=== PATIENT | male | born 1940 | race Caucasian/White ===

== ENCOUNTER 2016-05-28 19:27 | Inpatient (IN) ==
[2016-05-28] MEDS ORDERED: ZOFRAN IV ONE ×2 (19:37→22:03)
[2016-05-28] MEDS ORDERED: DILAUDID IV ONE (19:37)
[2016-05-28 20:01] LABS: MANUAL DIFF NEEDED? NO
[2016-05-28 20:13] LABS: BASO% 0.2 % (0.0-0.8); EOS% 0.6 % (0.0-10.0); HEMOGLOBIN 13.9 g/dL (14.0-18.0); IMM GRAN# 0.04 X1000 (0.0-0.04); IMM GRAN% 0.2 % (0.0-0.5); LYMPH# 2.79 X1000 (1.2-3.4); LYMPH% 16.5 % (20.5-51.1); MCHC 34.8 g/dL (33-37); MCV 89.1 FL (81-99); MONO# 1.57 X1000 (0.11-0.59); MONO% 9.3 % (1.7-9.3); MPV 10.1 FL (7.4-10.4); NEUT% 73.2 % (42.2-75.2); PLT 262 X1000 (130-400); RBC 4.49 XMIL (4.7-6.1)
[2016-05-28 20:19] LABS: INR 0.93 (0.86-1.15); PROTIME 12.8 Seconds (12.1-15.5); PTT PL 28.2 Seconds (22.6-43.9)
[2016-05-28 20:23] LABS: ALBUMIN 4.6 g/dL (3.5-5.0); CALCIUM 9.9 mg/dL (8.8-10.2); POTASSIUM 4.8 mmol/L (3.5-5.1); TOTAL BILIRUBIN 0.4 mg/dL (0.20-1.00); TOTAL PROTEIN 7.9 g/dL (6.3-8.3)
[2016-05-28] MEDS ORDERED: NS 1,000 ML IV SCH (21:45)
--- NOTE | 2016-05-28 21:56 | PROVIDER DOCUMENTATION ---
HPI-Abdominal Pain/GI Problem - General Chief Complaint: Abdominal Pain Stated Complaint: ABD PAIN Time Seen by Provider: 05/28/16 19:36 Source: patient Allergies/Adverse Reactions: Patient Allergies Allergy/AdvReac Type Severity Reaction Status Date / Time No Known Allergies Allergy Verified 05/28/16 19:33 Home Medications: Home Medication List Medication Instructions Recorded Confirmed Last Taken Type Allopurinol 100 mg PO HS 06/27/14 05/28/16 1 Day Ago History Amlodipine Besylate 10 mg PO HS 06/27/14 05/28/16 1 Day Ago History Aspirin EC 81 mg PO HS 06/27/14 05/28/16 1 Day Ago History Atorvastatin Calcium [Lipitor] 40 mg PO HS 06/27/14 05/28/16 1 Day Ago History Dutasteride [Avodart] 0.5 mg PO DAILY 06/27/14 05/28/16 1 Day Ago History Hydrochlorothiazide 25 mg PO DAILY 06/27/14 05/28/16 1 Day Ago History Losartan Potassium 100 mg PO DAILY 06/27/14 05/28/16 1 Day Ago History Meclizine HCl [Antivert] 25 mg PO TID 06/27/14 05/28/16 1 Day Ago History Tamsulosin [Flomax] 0.4 mg PO DAILY 06/27/14 05/28/16 1 Day Ago History Glimepiride [Amaryl] 2 mg PO DAILY 05/28/16 05/28/16 1 Day Ago History - History of Present Illness-ABD Nature of Presenting Problems: This pt presents today c complaints of severe abdominal pains that began this morning and worsened throughout the day. He states that he thought he was constipated so he ate some prunes around 1000. He reports a very small BM but still felt "full." He states that he feels like his stomach is swollen and feels very "hard." He denies any fever, chills, n/v/d. No other issues or complaints. On arrival, pt is screaming in pain and holding his abdomen. Abdominal Pain Onset Location: reports: generalized abdomen Quality of Pain: reports: stabbing Severity in ED: reports: severe Onset/Duration: reports: other (see hpi) Timing: reports: still present, getting worse Modifying Factors: improves with: palpation Associated Symptoms: reports: constipation, loss of appetite Last BM: this morning Dark Stools Present?: reports: none noticed Rectal Bleeding: reports: none Rectal Pain: reports: none Emesis Description: reports: none Bruising or Bleeding Gums?: No Similar Symptoms Previously?: No Recently seen or treated by another doctor?: No Review of Systems - Adult - REVIEW OF SYSTEMS - ADULT Constitutional: reports: no symptoms reported. denies: chills, fever Eyes: reports: no symptoms reported. denies: discharge, dry eyes Ears, Nose, Mouth & Throat: reports: no symptoms reported. denies: ear discharge, ear pain Cardiovascular: reports: no symptoms reported. denies: chest pain, edema Respiratory: reports: no symptoms reported. denies: chronic cough, cough Gastrointestinal: reports: abdominal pain, constipation. denies: hematemesis, nausea Genitourinary: reports: no symptoms reported. denies: dysuria, discharge Musculoskeletal: reports: no symptoms reported. denies: bone pain, back pain Integumentary: reports: no symptoms reported. denies: hives, hair loss Neurological: reports: no symptoms reported. denies: ataxia, dizziness/vertigo Psychiatric: reports: no symptoms reported. denies: anxiety, anti-depressant use Endocrine: reports: no symptoms reported Hematologic/Lymphatic: reports: no symptoms reported Allergic/Immunologic: reports: no symptoms reported All Other Systems: Reviewed and Negative Past History - Adult - PAST MEDICAL HISTORY-ADULT Review of Records: reports: Old Records Reviewed, Nursing Assessment Review, Medications Reviewed, Social history reviewed & non-contributory. Major Childhood Illnesses: reports: denies history Cardiovascular: reports: CAD ("leaky valves"), HTN, hyperlipidemia Respiratory: reports: denies history Gastrointestinal: reports: cholelithiasis Obstetrical/Gynecological: reports: denies history Genitourinary: reports: denies history Musculoskeletal: reports: other (gout) Neurological: reports: denies history Endocrine/Immune: reports: Diabetes Other Conditions: reports: other (vertigo ) - PRIOR SURGERIES/PROCEDURES Surgical/Procedure History: reports: appendectomy, cholecystectomy, orthopedic ( extremity) (right arm), other (cataract removal) - PRIOR HOSPITALIZATIONS Prior Hospitalizations: reports: for similar symptoms - IMMUNIZATION STATUS Childhood Immunizations: See Nurse Assessment Flu Vaccine: See Nurse Assessment - FAMILY HISTORY Family History: reviewed, not pertinent Physical Exam-General - PHYSICAL EXAM-ADULT Initial Vital Signs Reviewed: Yes - CONSTITUTIONAL General Appearance: alert, moderate distress, obese - EYES Eyes: PERRL/EOMI, pink conjunctivae - HEAD, EARS, NOSE, MOUTH & THROAT HENMT: normocephalic/atraumatic, moist mucous membranes, normal ENT inspection - NECK Neck: non-tender, full range of motion - RESPIRATORY Respiratory: chest non-tender, lungs clear - CARDIOVASCULAR Cardiovascular: normal peripheral pulses, regular rate, rhythm - GASTROINTESTINAL (ABDOMEN) Abdominal Exam: no pulsatile mass, abnormal bowel sounds (diminished), distended , guarding, rigid, tenderness. negative: McBurney's point tenderness, Logan's sign - MUSCULOSKELETAL Back Exam: normal inspection Extremity: normal range of motion, non-tender - SKIN Integumentary: normal color, normal turgor, warm/dry - NEUROLOGIC Neurologic: grossly normal, no motor/sensory deficits - PSYCHIATRIC Psych/Mental Status: normal mood/affect, normal thought content, normal thought process, oriented x 3 Progress - PLAN OF CARE/RESULTS Progress/Plan/Lab Results: Laboratory Tests 05/28/16 05/28/16 05/28/16 19:28 19:28 19:28 WBC 16.90 H RBC 4.49 L Hgb 13.9 L Hct 40.0 L MCV 89.1 MCH 31.0 MCHC 34.8 RDW Std Deviation 13.8 Plt Count 262 MPV 10.1 Immature Gran % (Auto) 0.2 Neut % (Auto) 73.2 Lymph % (Auto) 16.5 L [place] % (Auto) 9.3 Eos % (Auto) 0.6 Baso % (Auto) 0.2 Immature Gran # (Auto) 0.04 Neut # (Auto) 12.36 H Lymph # (Auto) 2.79 [place] # (Auto) 1.57 H Eos # (Auto) 0.10 Baso # (Auto) 0.04 PT 12.8 INR 0.93 APTT (Factor Assay) 28.2 Sodium 137 Potassium 4.8 Chloride 98 Carbon Dioxide 21 L Anion Gap 18 BUN 42 H Creatinine 2.1 H Estimated GFR/1.73 m2 31 BUN/Creatinine Ratio 20 Glucose 221 H Calculated Osmolality 291 Calcium 9.9 Total Bilirubin 0.40 AST 24 ALT 28 Alkaline Phosphatase 64 Total Protein 7.9 Albumin 4.6 Globulin 3.0 Albumin/Globulin Ratio 1.0 Blood Type Antibody Screen 05/28/16 19:44 WBC RBC Hgb Hct MCV MCH MCHC RDW Std Deviation Plt Count MPV Immature Gran % (Auto) Neut % (Auto) Lymph % (Auto) [place] % (Auto) Eos % (Auto) Baso % (Auto) Immature Gran # (Auto) Neut # (Auto) Lymph # (Auto) [place] # (Auto) Eos # (Auto) Baso # (Auto) PT INR APTT (Factor Assay) Sodium Potassium Chloride Carbon Dioxide Anion Gap BUN Creatinine Estimated GFR/1.73 m2 BUN/Creatinine Ratio Glucose Calculated Osmolality Calcium Total Bilirubin AST ALT Alkaline Phosphatase Total Protein Albumin Globulin Albumin/Globulin Ratio Blood Type A POSITIVE Antibody Screen NEGATIVE Orders Category Date Time Status Saline Loc NOW Care 05/28/16 19:36 Active THORAX/ABDOMEN/PELVIS W/O CONT [CT] Stat Exams 05/28/16 20:28 Taken CBC WITH DIFF [HEME] Stat Lab 05/28/16 19:28 Completed COMPREHENSIVE METABOLIC PANEL [CHEM] Stat Lab 05/28/16 19:28 Completed [address]IME WITH INR PL [COAG] Stat Lab 05/28/16 19:[address] [COAG] Stat Lab 05/28/16 19:28 Completed TYPE & SCREEN [BBK] Stat Lab 05/28/16 19:44 Completed 0.9% Sodium Chloride Inj [Ns] 1,000 ml Med 05/28/16 21:45 Active IV 75 mls/hr Hydromorphone [Dilaudid] Med 05/28/16 19:37 Discontinued 1 mg IV NOW ONE Ondansetron [Zofran] Med 05/28/16 19:37 Discontinued 4 mg IV NOW ONE Vital Signs Temp Pulse Resp BP Pulse Ox 05/28/16 19:30 97.5 F L 73 22 174/68 99 No Known Allergies Allergy (Verified 05/28/16 19:33) Allopurinol 100 mg PO HS 06/27/14 Amlodipine Besylate 10 mg PO HS 06/27/14 Aspirin EC 81 mg PO HS 06/27/14 Atorvastatin Calcium [Lipitor] 40 mg PO HS 06/27/14 Dutasteride [Avodart] 0.5 mg PO DAILY 06/27/14 Hydrochlorothiazide 25 mg PO DAILY 06/27/14 Losartan Potassium 100 mg PO DAILY 06/27/14 Meclizine HCl [Antivert] 25 mg PO TID 06/27/14 Tamsulosin [Flomax] 0.4 mg PO DAILY 06/27/14 Glimepiride [Amaryl] 2 mg PO DAILY 05/28/16 Laboratory 05/28/16 05/28/16 05/28/16 19:44 19:28 19:28 WBC 16.90 H RBC 4.49 L Hgb 13.9 L Hct 40.0 L MCV 89.1 MCH 31.0 MCHC 34.8 RDW Std Deviation 13.8 Plt Count 262 MPV 10.1 Immature Gran % (Auto) 0.2 Neut % (Auto) 73.2 Lymph % (Auto) 16.5 L [place] % (Auto) 9.3 Eos % (Auto) 0.6 Baso % (Auto) 0.2 Immature Gran # (Auto) 0.04 Neut # (Auto) 12.36 H Lymph # (Auto) 2.79 [place] # (Auto) 1.57 H Eos # (Auto) 0.10 Baso # (Auto) 0.04 PT 12.8 INR 0.93 APTT (Factor Assay) 28.2 Sodium Potassium Chloride Carbon Dioxide Anion Gap BUN Creatinine Estimated GFR/1.73 m2 BUN/Creatinine Ratio Glucose Calculated Osmolality Calcium Total Bilirubin AST ALT Alkaline Phosphatase Total Protein Albumin Globulin Albumin/Globulin Ratio Blood Type A POSITIVE Antibody Screen NEGATIVE 05/28/16 19:28 WBC RBC Hgb Hct MCV MCH MCHC RDW Std Deviation Plt Count MPV Immature Gran % (Auto) Neut % (Auto) Lymph % (Auto) [place] % (Auto) Eos % (Auto) Baso % (Auto) Immature Gran # (Auto) Neut # (Auto) Lymph # (Auto) [place] # (Auto) Eos # (Auto) Baso # (Auto) PT INR APTT (Factor Assay) Sodium 137 Potassium 4.8 Chloride 98 Carbon Dioxide 21 L Anion Gap 18 BUN 42 H Creatinine 2.1 H Estimated GFR/1.73 m2 31 BUN/Creatinine Ratio 20 Glucose 221 H Calculated Osmolality 291 Calcium 9.9 Total Bilirubin 0.40 AST 24 ALT 28 Alkaline Phosphatase 64 Total Protein 7.9 Albumin 4.6 Globulin 3.0 Albumin/Globulin Ratio 1.0 Blood Type Antibody Screen Orders Category Date Time Status NG/OG/Feeding Tube Insertion ORDERED Care 05/28/16 22:03 Active Saline Loc NOW Care 05/28/16 19:36 Active THORAX/ABDOMEN/PELVIS W/O CONT [CT] Stat Exams 05/28/16 20:28 Taken CBC WITH DIFF [HEME] Stat Lab 05/28/16 19:28 Completed COMPREHENSIVE METABOLIC PANEL [CHEM] Stat Lab 05/28/16 19:28 Completed PR[address]IME WITH INR PL [COAG] Stat Lab 05/28/16 19:[address] [COAG] Stat Lab 05/28/16 19:28 Completed TYPE & SCREEN [BBK] Stat Lab 05/28/16 19:44 Completed 0.9% Sodium Chloride Inj [Ns] 1,000 ml Med 05/28/16 21:45 Active IV 75 mls/hr Hydromorphone [Dilaudid] Med 05/28/16 19:37 Discontinued 1 mg IV NOW ONE Morphine Med 05/28/16 22:03 Discontinued 4 mg IV NOW ONE Ondansetron [Zofran] Med 05/28/16 19:37 Discontinued 4 mg IV NOW ONE Ondansetron [Zofran] Med 05/28/16 22:03 Discontinued 4 mg IV NOW ONE - CT/MRI 1 CT Study: Abdomen, Pelvis, Thorax CT Results: bowel perforation (called to Dr. Briscoe by Dr. Clark) - CONSULTS/PCP/HOSPITALIST Notification #1 *Consult/PCP/Hospitalist*: Dr. Noguera Time Discussed: 21:45 Consult Disposition: Will see in ED #2 Consult: Dr. Noguera Time Discussed: 22:05 Consult Disposition: Admit Departure - Departure Time of Disposition Order: 21:56 DIAGNOSIS: Bowel perforation Disposition: ADMITTED INPATIENT 09 Certified Medical Emergency: Emergent Condition: Stable Referrals: None,PCP [Primary Care Provider] - Attestation - Physician/ KIEL Attestation Patient care was provided by Advanced Practice Provider:: Yes Advanced Practice Provider:: Hank Iqbal Advanced Practice Provider documentation review:: The Mid-level provider documentation, treatment plan and medical decision making was reviewed by the physician who agrees with all treatment and medical decision making by the ML. The physician spent face to face time with patient:: Yes
[2016-05-28] MEDS ORDERED: MORPHINE IV ONE (22:03)
[2016-05-28] MEDS ORDERED: INVANZ 1 GM/NS 50 ML IV ONE (22:06)
--- NOTE | 2016-05-28 22:33 | HISTORY AND PHYSICAL ---
CHIEF COMPLAINT: Abdominal pain. HISTORY OF PRESENT ILLNESS: A 75-year-old male with acute onset of generalized severe abdominal pain this morning, which has been constant throughout the day, worsened with direct pressure, relieved some with pain medicine in the ER and associated with nausea, vomiting, including some blood-tinged vomit. His last bowel movement was earlier today after taking a laxative, but it was small. He denies chronic constipation. He says he has bowel movements daily that are soft and brown. He was in his usual state of health until this morning. PAST MEDICAL HISTORY: Aortic stenosis and what sounds like some aortic regurgitation. Hypertension. Diabetes. Gout. BPH. FAMILY PHYSICIAN: Brittney Anderson MD CROCHETER: Maurilio Batista MD HOME MEDICATIONS: Flomax. Antivert. Avodart. Allopurinol. Hydrochlorothiazide. Lipitor. Aspirin. Losartan. Amlodipine. Glimepiride. ALLERGIES: No known drug allergies. PAST SURGICAL HISTORY: 1. Laparoscopic cholecystectomy. 2. Laparoscopic appendectomy. FAMILY HISTORY: Reviewed and noncontributory. SOCIAL HISTORY: Negative for tobacco, alcohol, or illicit drug use. REVIEW OF SYSTEMS: Ten systems reviewed and negative except as noted above. PHYSICAL EXAMINATION: VITAL SIGNS: Temperature 97.5 degrees, pulse 73, respirations 22, blood pressure 174/68, O2 saturation 99%. GENERAL: Well-developed, elderly male in no distress who looks his stated age. HEENT: Normocephalic, atraumatic. Extraocular muscles intact. Pupils equal, round, reactive to light. Sclerae anicteric. NECK: Supple. No thyromegaly. CARDIOVASCULAR: Regular rate and rhythm. RESPIRATORY: Bilateral equal breath sounds. GI: Firm, distended and diffusely tender with some guarding. He seems to be more tender on his right side. No hernia appreciated. No palpable mass appreciated. No organomegaly. SKIN: Warm and dry. No rash. MUSCULOSKELETAL: Moves all extremities equally and well. EXTREMITIES: No clubbing, cyanosis, or edema. LABORATORY: White blood cell count 16.9, hemoglobin 13.9, hematocrit 40, platelet count 262,000. INR 0.93. Metabolic profile reviewed and notable for BUN of 42, creatinine 2.1. IMAGING: CT of the chest, abdomen and pelvis was reviewed by me. He has a distended transverse and ascending colon with free air throughout. There may be an origin in the cecum. The small bowel appears normal. There appears to be inspissated stool along the distal transverse, descending and sigmoid colon. No definite colonic mass is appreciated. ASSESSMENT AND PLAN: A 75-year-old male with perforated viscus and what appears to be a perforated cecum secondary to inspissated stool. He will be taken to the operating room emergently tonight for exploration, partial colectomy and other indicated procedures depending on our findings. I discussed the possible need for a diverting colostomy or ileostomy and even a total colectomy. We discussed the risks of bleeding, infection, anastomotic leak, respiratory or cardiac failure, injury to surrounding organs, such as the intestines, ureters, spleen or liver and other imponderables. He understands and agrees to proceed.
--- NOTE | 2016-05-28 22:42 | Diag Imaging Result Document ---
PROCEDURE NAME: THORAX/ABDOMEN/PELVIS W/O CONT - 05/28/2016 STUDY: CT chest without contrast. COMPARISON: No comparison films. No pleural effusions. No thoracic aortic aneurysm. Mild cardiac prominence. No enlarged mediastinal or hilar lymph nodes. No infiltrates. No bronchiectasis. No lung mass. Minimal atelectasis or scarring in the left base. IMPRESSION: 1. No pneumonia, pleural effusion, or pneumothorax. 2. Minimal left basilar atelectasis or fibrosis. STUDY: Abdomen and pelvis without oral or intravenous contrast. There is free air within the abdomen and pelvis. This is more prominent about the liver and cecum. The cecum and transverse colon are markedly distended and filled with air and debris. Transverse diameter of the cecum and ascending colon measure at least 8 cm. There are scattered diverticula primarily in the sigmoid colon. The gallbladder has been removed. There are scattered hypodense hepatic lesions which are nonspecific but may simply represent cysts. Normal spleen and adrenal glands. No inflammation about the pancreas. No renal stones. No hydronephrosis. No aortic aneurysm. Prominent atherosclerosis. The urinary bladder is only mildly distended. There are small fat filled inguinal hernias. No bowel loops within these. IMPRESSION: 1. Markedly distended cecum, ascending colon, and proximal transverse colon with free air in the abdomen. 2. Cholecystectomy. 3. Hypodense hepatic lesions which may simply be cysts. 4. Atherosclerosis. 5. Diverticulosis. A preliminary report was called to Dr. Briscoe in the emergency room at 9:35 p.m. MTDD
[2016-05-28] MEDS ORDERED: INVANZ 1 GM/NS 50 ML ONE (23:34)
[2016-05-29 01:05] LABS: BILIRUBIN URINE NEGATIVE (NEGATIVE); BLOOD URINE NEGATIVE (NEGATIVE); COLOR YELLOW; GLUCOSE URINE NEGATIVE (NEGATIVE); LEUKOCYTES URINE NEGATIVE (NEGATIVE); NITRITE URINE NEGATIVE (NEGATIVE); PH URINE 5.5; PROTEIN URINE 100 mg/dL (NEGATIVE); SP GRAVITY URINE 1.025; TURBIDITY URINE HAZY (CLEAR); URINE SOURCE CATH; UROBILINOGEN URINE NORMAL (NORMAL)
[2016-05-29 01:06] LABS: URINE MICRO REVIEW NEEDED? YES
[2016-05-29 01:58] LABS: UR EPITHELIAL CELLS <10 /HPF (<10); URINE BACTERIA NEGATIVE /HPF; URINE RBC <10 /HPF (<10); URINE WBC <10 /HPF (<10)
[2016-05-29] MEDS ORDERED: ZOFRAN IV PRN ×2 (03:05→04:20)
[2016-05-29] MEDS ORDERED: D5 LR 1,000 ML IV SCH ×2 (03:05→05:00)
[2016-05-29] MEDS ORDERED: DILAUDID IV PRN ×2 (03:05→04:14)
[2016-05-29] MEDS ORDERED: FENTANYL ONE (03:08)
[2016-05-29] MEDS ORDERED: DIPRIVAN 1% ONE (03:08)
[2016-05-29] MEDS ORDERED: OFIRMEV 1000 MG/ISOTONIC SOLN 100 ML IV SCH (04:00)
[2016-05-29] MEDS: DIPRIVAN 1% 100 ML IV SCH ×2 (04:30→07:26)
[2016-05-29 05:14] LABS: ALLEN TEST YES; BE -0.5 mmoll (-3.0-3.0); BLOOD TYPE ARTERIAL; DRAW SITE R RADIAL; METHB 2.1 % (0.0-1.5); PCO2(98.6) 39 mmHg (35-45); PO2(98.6) 194 mmHg (60-100); SAMPLE BLOOD; SRATE 12 BPM; THB 12.3 g/dL (11.5-17.4); TVOL 700 mL
[2016-05-29 05:15] LABS: MODALITY VENTILATOR
[2016-05-29] MEDS: OFIRMEV 1000 MG/ISOTONIC SOLN 100 ML IV SCH ×4 (05:17→23:04)
--- NOTE | 2016-05-29 05:33 | OPERATIVE NOTE ---
PROCEDURE DATE: 05/29/2016 PREOPERATIVE DIAGNOSIS: Perforated viscus. POSTOPERATIVE DIAGNOSES: 1. Gangrenous colon with perforation. 2. Inspissated stool in the descending colon, sigmoid colon, and rectum. PROCEDURE: Exploratory laparotomy with partial colectomy and ileal colic anastomosis. SURGEON: Miky Noguera MD ANESTHESIA: General. ESTIMATED BLOOD LOSS: 200 mL. COMPLICATIONS: None apparent. SPECIMENS: Ascending colon and transverse colon. FINDINGS: The ascending and transverse colon were gangrenous with micro-perforations of the cecum and ascending colon, and probably in the transverse colon as well, although I did not see any gross fecal soilage or bilious soilage. The distal descending, sigmoid colon, and rectum had inspissated stool; however, the bowel of the descending colon, sigmoid, and rectum appeared to be of good color and blood supply and was not dilated. There were no cancerous mass is appreciated. The transition point was at the splenic flexure, or near the transition point of necrotic viable colon occurred at the distal transverse colon near the splenic flexure. TECHNIQUE: The patient was brought to the operating room and placed supine on the table. General anesthesia was induced. After Negron catheter was placed he was prepped and draped in sterile fashion. An nasogastric tube had already been placed prior to arrival to the OR. An incision was made from the xiphoid process down to the symphysis pubis with a 10 blade and carried down through the subcutaneous fat and fascia sharply. The peritoneum was then opened sharply with the knife and then using my hand within the peritoneal cavity, I extended the fascia and peritoneal incisions with cautery lengthwise throughout our incision. Immediately we found gangrenous colon as described above. The ascending colon and cecum were very distended and the transverse colon was quite distended as well. This caused the colon to be very thin walled with areas of micro- perforation. No gross fecal soilage was seen. A Bookwalter retractor was placed and with some difficulty I began mobilizing the ascending colon and cecum by incising the lateral peritoneal reflection with cautery and bluntly using my fingers to separate the mesentery and colon away from the peritoneum and retroperitoneum. I went ahead and divided the terminal ileum perhaps 10 cm from the valve from the ileocecal valve. This was done with a linear blue ELIZA stapler. I then began dividing the intervening mesentery of the distal terminal ileum and ascending colon. This was done with the LigaSure. I then turned my attention to the gastrocolic ligament and divided this with cautery and came down to the hepatic flexure. It was somewhat stuck to the liver and it was peeled off the liver with blunt finger dissection and cautery. I continued mobilizing the hepatic flexure with cautery and blunt finger dissection, mobilizing this flexure up and out of the retroperitoneum away from the underlying duodenum. We continued our dissection down the white line of Toldt of the ascending colon and completely mobilized this colon up out of the retroperitoneum into our wound. The mesentery was divided with the LigaSure. We continued this around the hepatic flexure and across the gastrocolic ligament of the transverse colon, all the way to the splenic flexure. I mobilized the splenic flexure with cautery, blunt finger dissection, and ligature and continued this dissection partially down the lateral peritoneal reflection on the descending side. Once our splenic flexure was mobilized, I assessed the viability of the bowel. There was a transition of the necrotic bowel to living bowel at the distal transverse colon, near the flexure. I divided the colon here with a blue ELIZA stapler, where I have thought the bowel was viable. The remaining middle colic vessels and mesentery was divided with the LigaSure. There were a few venous bleeders from the mesentery that were controlled with 3-0 [id number] silk stick ties. The specimen was passed off the field. I inspected the descending colon, sigmoid, and rectum with the findings as noted above. I brought in a Doppler and assessed the vasculature of our splenic flexure and descending colon and did find pulsatile vessels in the mesentery near the insertion into the bowel. The bowel had good color and the small bowel was peristalting with good color. I irrigated out the right and left pericolic gutters with warm saline. I then began a 2 layered hand-sewn [id number] anastomosis. The terminal ileum was brought next to the colon and in a mesenteric [id number] fashion a row of posterior interrupted 3-0 silk seromuscular sutures was placed/ bowel clamps were placed proximally and distally. I then opened the colon and the small bowel with cautery. The stool and bile was suctioned out. Some vegetable material was also removed with forceps. I then began the posterior inner layer with a running locking 3-0 Vicryl converting to a baseball stitch anteriorly and then an outer anterior row of 3- 0 seromuscular silk sutures was also placed. The anastomosis was patent. There is no signs of any leakage after the clamps were removed. There was no tension. I then closed the intervening mesenteric defect with interrupted 3-0 silk. We changed our gloves. The bowel was put back into its anatomic position. We checked for bleeding in all quadrants and could not find any bleeding. Our laparotomy pads were removed. The Bookwalter retractor was removed. The peritoneum was closed with a running #1 Vicryl. Several interrupted [id number] 0 Vicryl pops were done on the fascia for internal retention sutures. I then closed the fascia with a running looped #1 Maxon in 2 directions. The skin was closed with skin clips. He was transferred to the ICU in fair condition. There were no apparent complications.
[2016-05-29] MEDS: HUMULIN R SUBQ SCH ×5 (06:16→20:06)
[2016-05-29 06:56] LABS: ALBUMIN 3.5 g/dL (3.5-5.0); CALCIUM 8.7 mg/dL (8.8-10.2); POTASSIUM 4.5 mmol/L (3.5-5.1); TOTAL BILIRUBIN 0.47 mg/dL (0.20-1.00); TOTAL PROTEIN 6.2 g/dL (6.3-8.3)
[2016-05-29] MEDS ORDERED: HUMULIN R DOSE (PARKWAY) SUBQ SCH (07:00)
--- NOTE | 2016-05-29 07:37 | EKG Report ---
Test Performed on : 05/29/2016 07:11:31 AM Test Reason : Bowel Perforation,Surgical Patient Blood Pressure : / mmHG Vent. Rate : 078 BPM Atrial Rate : 078 BPM P-R Int : 188 ms QRS Dur : 096 ms QT Int : 378 ms P-R-T Axes : 057 019 043 degrees QTc Int : 430 ms Normal sinus rhythm. Normal ECG When compared with ECG of 27-JUN-2014 14:40, No significant change was found Confirmed by Jeremi Vallejo MD ([id number]) on 05/29/2016 9:53:07 PM
--- NOTE | 2016-05-29 07:51 | Diag Imaging Result Document ---
PROCEDURE NAME: CHEST-PORTABLE - 05/29/2016 PORTABLE CHEST X-RAY: COMPARISON: CT chest 05/28/2016. FINDINGS: There is a new endotracheal tube at T4. There is a nasogastric tube with the tip in the stomach. There is some patchy atelectasis in the lung bases. No significant consolidation. IMPRESSION: No acute disease.
[2016-05-29] MEDS: PROTONIX IV SCH (07:58)
[2016-05-29] MEDS: SODIUM CHLORIDE 0.9% INJ SCH (07:58)
[2016-05-29 08:59] LABS: EOS# 0.01 X1000 (0.0-0.7); EOS% 0.1 % (0.0-10.0); LYMPH# 0.22 X1000 (1.2-3.4); LYMPH% 2.5 % (20.5-51.1); MANUAL DIFF NEEDED? YES; MCH 31.3 PG (27-31); MCHC 34.3 g/dL (33-37); MCV 91.4 FL (81-99); MONO# 0.49 X1000 (0.11-0.59); MONO% 5.5 % (1.7-9.3); MPV 9.6 FL (7.4-10.4); NEUT% 91.9 % (42.2-75.2); PLT 192 X1000 (130-400); RBC 3.83 XMIL (4.7-6.1)
[2016-05-29 09:21] LABS: BANDS 18 % (0-1); LYMPHS 10 % (21-51); MONO 6 % (1-9)
[2016-05-29 09:35] LABS: HEMOGLOBIN A1C 5.7 % (4.8-6.0)
[2016-05-29] MEDS: MINERAL OIL PO SCH ×3 (09:43→16:12)
[2016-05-29] MEDS ORDERED: ROBINUL ONE (09:46)
[2016-05-29] MEDS ORDERED: XYLOCAINE-MPF 2% ONE (09:46)
[2016-05-29] MEDS ORDERED: ANESTHESIA PB SET 88 IN 5742 ONE (09:46)
[2016-05-29] MEDS ORDERED: QUELICIN (DOSE) ONE (09:46)
[2016-05-29] MEDS ORDERED: NORCURON ONE (09:46)
[2016-05-29] MEDS ORDERED: NEOSTIGMINE ONE (09:46)
[2016-05-29] MEDS ORDERED: LR 3,000 ML ONE (09:46)
[2016-05-29] MEDS ORDERED: EXTENSION SET 32 IN 4522 ONE (09:46)
[2016-05-29] MEDS ORDERED: OFIRMEV 1000 MG/ISOTONIC SOLN 100 ML ONE (09:46)
--- NOTE | 2016-05-29 10:10 | CONSULTATION ---
TIME: 0500. CHIEF COMPLAINT: Abdominal pain. HISTORY OF PRESENT ILLNESS: Mr. Marcum is a 75-year-old male who presented to the ER at [facility] last night at approximately 9:30. He presented with complaints of abdominal pain. The patient's daughter provided past medical history and history of present illness due to the patient has just recently come out of surgery and is intubated at this time and sedated. His daughter has reported that the patient had not had a bowel movement for 2 days and that, about 3:30 yesterday afternoon on the , he drank a bottle of mag citrate to relieve his constipation. Shortly after this, the patient called his daughter and reported that he was having severe abdominal pain. They called an ambulance and had him brought to the ER. Upon evaluation in the ER, the patient was found to have an elevated white blood cell count of 16.9. A CT abdomen and pelvis was performed, which showed that there was a markedly distended cecum, ascending colon, and proximal transverse colon with free air in the abdomen. Dr. Noguera was consulted. The patient was subsequently transferred to [facility] and underwent a bowel resection with Dr. Noguera for gangrenous bowel with perforation. The PACU nurse reported that Dr. Noguera removed parts of the transverse and ascending colon. Upon my evaluation, the patient had just recently returned from the PACU. His daughters, by the name of AndrzejTaqueriale, and Bibi, were at bedside and report that the patient is to remain a full code. His daughter denied her father reporting any symptoms of a fever, body aches, or chills. She did report that, after his arrival to the ER at [facility], he did have some nausea and vomiting. At this time, the patient has been placed in the ICU for inpatient admission with Dr. Noguera and the hospitalist group will be handling his medical management. REVIEW OF SYSTEMS: A 14-point review of systems was conducted with the patient and are negative except for pertinent positives mentioned in the above HPI. PAST MEDICAL HISTORY: 1. History of heart murmur. 2. Aortic valve regurgitation. 3. Questionable history of irregular heartbeat. 4. Diabetes mellitus type 2. 5. Hyperlipidemia. 6. Hypertension. 7. Vertigo. 8. Gout. 9. Melanoma skin cancer. PAST SURGICAL HISTORY: 1. Appendectomy. 2. Cholelithiasis. 3. Bilateral cataract removal. 4. Right arm surgery for removal of melanoma cancer. SOCIAL HISTORY: The patient is a former smoker. He quit smoking in 1988, though prior to this, smoked 1 pack per day for approximately 20 years. His family reports very occasional alcohol use. No known illicit drug use. The patient, at this time, does live alone and is usually able to perform his activities of daily living without difficulty. FAMILY HISTORY: Positive for heart disease in his father and melanoma skin cancer. The patient's mother has a history of ovarian cancer and Alzheimer disease. ALLERGIES: The patient has no known allergies. HOME MEDICATIONS: 1. Allopurinol 100 mg p.o. nightly. 2. Amlodipine 10 mg p.o. nightly. 3. Aspirin 81 mg p.o. nightly. 4. Atorvastatin 40 mg p.o. nightly. 5. Avodart 0.5 mg p.o. daily. 6. Amaryl 10 mg p.o. daily. 7. Hydrochlorothiazide 25 mg p.o. daily. 8. Losartan 100 mg p.o. daily. 9. Antivert 25 mg p.o. t.i.d. 10.Flomax 0.4 mg p.o. daily. DIAGNOSTIC DATA: Laboratory results: White blood cell count 16.9, hemoglobin 13.9, hematocrit 40, platelet count 262, PT 12.8, INR 0.93, PTT 28.2, sodium 137, potassium 4.8, chloride 98, bicarb 21, BUN 42, creatinine 2.1, GFR 31, glucose 221, calcium 9.9. Liver function tests within normal limits. Arterial blood gases were obtained, ventilator at 50% FIO2, pH 7.4, PCO2 39, PO2 194, HCO3 24.5, base excess is negative 0.5. O2 saturation is 99. Urinalysis was obtained via catheter, was positive for protein, though was otherwise within normal limits. A portable chest x-ray that was performed for status post intubation showed no acute abnormality, though we are awaiting the official radiology over-read. Pending diagnostic studies at this time are EKG, blood cultures, a lactate, and hemoglobin A1c. PHYSICAL EXAMINATION: VITAL SIGNS: Temperature 97.2, heart rate 87, respirations 22, blood pressure 146/71, oxygen saturation 100% on ventilator. GENERAL: Mr. Marcum is a well-nourished, well-developed, elderly 75-year-old male. Upon my examination, the patient has just recently returned from the surgical recovery room and is intubated and sedated at this time. HEENT: Head is atraumatic, normocephalic. Pupils are 2 mm bilaterally and slightly sluggish. Sclerae are white, no lesions noted. Subconjuctivae are pink. Oral mucosa is moist. There is an endotracheal tube noted at the right lip. NECK: Supple. Trachea midline. No JVD noted. CARDIOVASCULAR: There is a normal S1 and S2. The patient also has a systolic murmur noted as well, though no other rubs or gallops present. Regular heart rate and rhythm. PULMONARY: The patient has symmetrical chest expansion bilaterally. Lung sounds are clear to auscultation in bilateral full espinoza. ABDOMEN: Slightly firm, distended. Bowel sounds are present in all 4 quadrants. GENITOURINARY: The patient has a Negron catheter in place at this time and does have light, jonatan- colored urine noted in his Negron drainage bag. EXTREMITIES: No cyanosis or edema noted. Pulse, motor, and sensory intact in all extremities as well. Pedal pulses are 3+ bilaterally. Radial pulses are 3+ bilaterally. The patient does have clubbing noted. INTEGUMENTARY: The patient's skin is pink, warm, dry, and intact, except for recent abdominal surgical wound. NEUROLOGICAL: The patient's neurological exam is very limited at this time, due to he is intubated and sedated, and has just recently come from the PACU, though he is responsive to painful stimuli. ASSESSMENT AND PLAN: 1. Gangrenous bowel with perforation, status post bowel resection. We will follow Dr. Noguera's recommendations for management of this and the patient is receiving Invanz 1 g intravenous q.24 h., and we will continue to follow. 2. Leukocytosis. This is likely secondary to his bowel perforation. We will continue with treatment for #1. 3. Acute kidney injury. We will continue with gentle fluid resuscitation. We will avoid nephrotoxic medications and renally dose medications as necessary. 4. Diabetes mellitus type 2. At this time, we will place the patient on a sliding scale insulin and do pattern fingerstick blood sugars. We will continue to follow. 5. Hypertension. At this time, we have not placed orders for any antihypertensive medications, due to the patient has just returned from surgery, though will likely need propofol for sedation. We will continue to monitor this closely. The patient will have vital signs q.1 h. per ICU protocol. He will be on strict bedrest. We will do strict intake and output. He will be n.p.o. DVT prophylaxis at this time is being provided with SCDs and Lovenox 40 mg subcutaneous nightly. GI prophylaxis is being provided with Protonix 40 mg IV q.24 h. Pain medication and nausea medications have also been ordered with Dilaudid and Zofran p.r.n. Further orders and recommendations pending hospital course, diagnostic studies, and physician evaluation. We would like to thank Dr. Noguera for this consult. Dictated by EMELIA Haley for Conrado Carrasco MD
--- NOTE | 2016-05-29 10:54 | PROGRESS NOTE ---
DATE: 05/29/2016 SUBJECTIVE: The patient is awake, alert, oriented, and following commands. He is on CPAP and breathing comfortably. No acute event reported by the overnight staff. OBJECTIVE: Vital Signs: Blood pressure 130/62, pulse of 75, respirations 19, temperature of 97.8, saturation 100% on CPAP. General Appearance: Obese, white male, in no acute distress. HEENT: Anicteric. Clear conjunctivae. Neck supple. No JVD. No bruits. Cardiovascular: S1, S2. Normal rate and rhythm. No murmur, rubs, or gallops. Pulmonary: Clear to auscultation bilaterally. GI: Midline incision noted. Slightly distended. Minimal bowel sounds. LABORATORY: Sodium 139, potassium 4.5, chloride 101, bicarb 21. BUN 39, creatinine 1.9, glucose of 119. Liver function tests mildly elevated today. White count 8.93, hemoglobin 12.0, hematocrit of 35.0, platelets of 192,000. ASSESSMENT AND PLAN: This is a 75-year-old white male admitted to the hospital for bowel perforation. 1. Bowel perforation, status post colectomy of the transverse and ascending partially. Still he has not had a bowel movement or passing gas just yet. Incisions clean. We will continue supportive care and will continue ertapenem for now. 2. Diabetes. We will continue sliding scale insulin. 3. Deep vein thrombosis prophylaxis. The patient is on Lovenox. 4. Hypertension. Blood pressure reasonably controlled. We will restart his home medications back once able to swallow. 5. Acute respiratory failure, improving. Hopefully, we can extubate the patient today. 6. CODE STATUS: The patient is a full code.
[2016-05-29] MEDS: D5 LR 1,000 ML IV SCH ×2 (11:08→20:07)
[2016-05-29 11:56] LABS: BLOOD TYPE ARTERIAL; SAMPLE BLOOD
[2016-05-29 12:08] LABS: PCO2(98.6) 40 mmHg (35-45); PO2(98.6) 130 mmHg (60-100); THB 12.2 g/dL (11.5-17.4); pH(98.6) 7.39 (7.35-7.45)
[2016-05-29 12:09] LABS: ALLEN TEST NO; DRAW SITE R BRACHIAL; MODALITY VENTILATOR
--- NOTE | 2016-05-29 13:29 | CONSULTATION ---
DATE OF CONSULTATION: 05/29/2016 REFERRING PHYSICIAN: Miky Noguera MD. CHIEF COMPLAINT: Abdominal pain. HISTORY OF PRESENT ILLNESS: This is a 75-year-old male who presented to the hospital initially with complaints of abdominal pain. He has a past medical history of hypertension, diabetes, gout, BPH and aortic stenosis with a firm abdomen. Some blood-tinged vomit that began yesterday morning. He was taken to the operating room emergently and was found to have a gangrenous colon with perforation which required exploratory laparotomy with partial colectomy and ileocolic anastomosis. The patient is in the ICU on a ventilator at this time. PAST MEDICAL HISTORY: As mentioned in HPI, otherwise, noncontributory. PAST SURGICAL HISTORY: Laparoscopic cholecystectomy and appendectomy. REVIEW OF SYSTEMS: Unable to obtain at this time. ALLERGIES: No known drug allergies. FAMILY HISTORY: Noncontributory. SOCIAL HISTORY: Negative for tobacco, alcohol or illicit drugs. ACTIVE MEDICATIONS: Lovenox, Invanz, Dilaudid, Humulin R, Zofran, Protonix, Diprivan. PHYSICAL EXAMINATION: Vital Signs: Temperature 97.8, heart rate 75, respiratory rate 19, blood pressure 130/62, oxygen saturation 99%. General: This is a 75-year-old male status post laparoscopic partial colectomy and ileocolic anastomosis on the vent in ICU, sedated. HEENT: Normocephalic and atraumatic. ET tube in place. Cardiovascular: Regular rate and rhythm, S1-S2 present. Chest: Reduced entry. Abdomen: Status post exploratory surgery. Bowel sounds present. Otherwise unremarkable. Extremities: Distal pulses palpable. Free of edema. Neuro: Sedated. LABS/INVESTIGATIONS: WBC 16.9, RBC is 4.49, hemoglobin 13.9, hematocrit 40, platelet count 262. Sodium 139, potassium 4.5, chloride 101, CO2 of 21, anion gap is 17. Glucose 199, BUN 39, creatinine 1.9. Chest x-ray unremarkable. ASSESSMENT AND PLAN: He is a 75-year-old male, status post emergent exploratory laparotomy with partial colectomy and ileocolic anastomosis. Respiratory failure and sepsis. He is in the ICU on the ventilator. Operative notes imply there were no complications. For the time being, we will continue ventilator management with intravenous antibiotics , gastrointestinal, deep vein thrombosis prophylaxis and further recommendations pending diagnostic studies. Thank you for the courtesy consult. Dictated by EMELIA Lal for Rosalee Valenzuela MD [facility]
[2016-05-29] MEDS: DILAUDID IV PRN ×3 (16:10→23:10)
[2016-05-29] MEDS: LOVENOX SUBQ SCH (20:05)
[2016-05-29] MEDS ORDERED: LOVENOX SUBQ SCH (21:00)
[2016-05-29] MEDS ORDERED: INVANZ 1 GM/NS 50 ML IV SCH (22:00)
[2016-05-30] MEDS: DILAUDID IV PRN ×7 (02:22→23:58)
[2016-05-30] MEDS: OFIRMEV 1000 MG/ISOTONIC SOLN 100 ML IV SCH ×4 (05:11→23:58)
[2016-05-30] MEDS: PROTONIX IV SCH (05:29)
[2016-05-30] MEDS: HUMULIN R SUBQ SCH ×4 (06:40→21:17)
[2016-05-30 07:27] LABS: ALLEN TEST YES; BE 3.6 mmoll (-3.0-3.0); BLOOD TYPE ARTERIAL; DRAW SITE L RADIAL; METHB 1.8 % (0.0-1.5); O2(CT) 15.7 mL/dL (15.0-23.0); PCO2(98.6) 47 mmHg (35-45); PO2(98.6) 80 mmHg (60-100); SAMPLE BLOOD; SAO2 97.5 % (95.0-100.0); THB 11.8 g/dL (11.5-17.4)
[2016-05-30 07:28] LABS: MODALITY CANNULA
--- NOTE | 2016-05-30 07:48 | Diag Imaging Result Document ---
PROCEDURE NAME: CHEST-1 VIEW - 05/30/2016 AP PORTABLE CHEST AT 0500 HOURS: FINDINGS: There is an NG tube with its tip in the fundus of the stomach. There is some atelectasis present in the lingula and left lower lobe which has worsened since 05/29/2016. Otherwise, there has been no significant change. The endotracheal tube has been removed. IMPRESSION: Slightly worsened left basilar atelectasis.
[2016-05-30 08:09] LABS: EOS# 0.05 X1000 (0.0-0.7); EOS% 0.7 % (0.0-10.0); HEMATOCRIT 34.2 % (42.0-52.0); HEMOGLOBIN 11.4 g/dL (14.0-18.0); LYMPH# 0.38 X1000 (1.2-3.4); LYMPH% 5.3 % (20.5-51.1); MANUAL DIFF NEEDED? YES; MCH 30.8 PG (27-31); MCHC 33.3 g/dL (33-37); MCV 92.4 FL (81-99); MONO# 0.49 X1000 (0.11-0.59); MONO% 6.9 % (1.7-9.3); MPV 9.9 FL (7.4-10.4); NEUT% 87.1 % (42.2-75.2); PLT 191 X1000 (130-400)
[2016-05-30] MEDS ORDERED: APRESOLINE IV PRN (08:16)
[2016-05-30] MEDS: D5 LR 1,000 ML IV SCH ×2 (08:18→17:55)
[2016-05-30 08:33] LABS: BANDS 18 % (0-1); LYMPHS 8 % (21-51); MONO 6 % (1-9)
[2016-05-30 08:34] LABS: CALCIUM 7.6 mg/dL (8.8-10.2); POTASSIUM 4.5 mmol/L (3.5-5.1)
[2016-05-30] MEDS: MINERAL OIL PO SCH ×3 (08:48→16:50)
--- NOTE | 2016-05-30 09:01 | PROGRESS NOTE ---
DATE: 05/30/2016 SUBJECTIVE: The patient is feeling better today. He was extubated yesterday and has been maintaining his airway. Still has NG tube in place to low wall suction. No acute event reported by the overnight staff. He had a little bowel movement overnight. OBJECTIVE: Vital signs: Blood pressure 153/66, pulse of 86, respirations 23, temperature 98.5 degrees, saturation of 98% on 4 L of nasal cannula. General appearance: Well -developed, well- nourished, white male, in no acute distress. HEENT: Anicteric. Clear conjunctivae. Neck: Supple. No JVD. No bruit. Cardiovascular: S1, S2. Normal rate and rhythm. No murmur, rubs, or gallops. Pulmonary: Clear to auscultation bilaterally. GI: Soft, nondistended. Tender to palpation. Very hypoactive bowel sounds. Dressing in place. Extremities: No clubbing, cyanosis, or edema. SCDs in place. LABORATORY: Chemistries and CBC are still pending this morning. Chest x-ray shows some atelectasis on the lingular lobe. ASSESSMENT AND PLAN: This is a 75-year-old white male admitted to the hospital for bowel perforations. 1. Bowel perforations status post colectomy. Surgery is following. The patient still has an NG tube in place. He is also on home ertapenem for bowel perforation. 2. Acute respiratory failure, resolved. 3. Hypertension. We will continue p.r.n. hydralazine for now. Once the patient is able to take p.o. we will restart him back on his home medications. 4. Benign prostatic hypertrophy. We will resume his Avodart when he is able to take p.o. 5. Diabetes type 2. We will continue him on sliding scale insulin for now. 6. Code status. The patient is a full code. 7. Deep vein thrombosis prophylaxis. The patient is on Lovenox 40 subcutaneously daily. [facility]
[2016-05-30] MEDS: LOVENOX SUBQ SCH (20:51)
[2016-05-30] MEDS: INVANZ 1 GM/NS 50 ML IV SCH (21:40)
[2016-05-31] MEDS: D5 LR 1,000 ML IV SCH ×3 (03:39→11:55)
[2016-05-31 04:26] LABS: ALLEN TEST YES; BE 7.8 mmoll (-3.0-3.0); BLOOD TYPE ARTERIAL; DRAW SITE R RADIAL; METHB 2.1 % (0.0-1.5); O2(CT) 6.4 mL/dL (15.0-23.0); PCO2(98.6) 48 mmHg (35-45); PO2(98.6) 72 mmHg (60-100); SAMPLE BLOOD; SAO2 99.1 % (95.0-100.0); THB 4.7 g/dL (11.5-17.4); pH(98.6) 7.44 (7.35-7.45)
[2016-05-31 04:27] LABS: MODALITY CANNULA
[2016-05-31] MEDS: OFIRMEV 1000 MG/ISOTONIC SOLN 100 ML IV SCH ×3 (04:58→16:40)
[2016-05-31] MEDS: SODIUM CHLORIDE 0.9% INJ SCH (04:58)
[2016-05-31] MEDS: PROTONIX IV SCH ×2 (04:58→08:07)
[2016-05-31] MEDS: DILAUDID IV PRN ×5 (04:58→22:04)
[2016-05-31] MEDS: HUMULIN R SUBQ SCH ×3 (06:04→15:37)
[2016-05-31 06:46] LABS: MANUAL DIFF NEEDED? NO
[2016-05-31 07:00] LABS: BASO% 0.1 % (0.0-0.8); EOS# 0.21 X1000 (0.0-0.7); EOS% 2.7 % (0.0-10.0); HEMATOCRIT 33.8 % (42.0-52.0); HEMOGLOBIN 11.3 g/dL (14.0-18.0); LYMPH% 7.7 % (20.5-51.1); MCH 30.9 PG (27-31); MCHC 33.4 g/dL (33-37); MCV 92.3 FL (81-99); MONO# 0.64 X1000 (0.11-0.59); MONO% 8.2 % (1.7-9.3); MPV 9.8 FL (7.4-10.4); NEUT% 81.3 % (42.2-75.2); PLT 215 X1000 (130-400); RBC 3.66 XMIL (4.7-6.1)
[2016-05-31 07:24] LABS: CALCIUM 8.1 mg/dL (8.8-10.2); POTASSIUM 5.1 mmol/L (3.5-5.1)
[2016-05-31] MEDS: MINERAL OIL PO SCH ×3 (08:48→21:14)
--- NOTE | 2016-05-31 12:29 | PROGRESS NOTE ---
DATE: 05/31/2016 SUBJECTIVE: The patient is feeling better today. Had a bowel movement this morning. NG tube has been capped, no nausea, no vomiting. The patient is passing flatus. OBJECTIVE: Vital signs: Blood pressure 139/58, pulse of 74, respiration 18, temperature 98.1 degrees. Saturations 100% on room air. General Appearance: Well-developed, well-nourished white male, in no acute distress. HEENT: NT tube in place. That has been capped. Anicteric sclera and conjunctivae. Neck: Is supple. No JVD. No bruit. Cardiovascular: S1, S2. Normal rate and rhythm. No murmur, rubs, or gallops. Pulmonary: Clear to auscultation bilaterally. GI: Soft, nontender, nondistended. Normoactive bowel sounds. Musculoskeletal: No clubbing, cyanosis, or edema. LABORATORY: His white count today is 7.76, hemoglobin 11.3, hematocrit of 33.8, platelets of 215,000, chemistry sodium of 137, potassium 5.1, chloride 99, bicarb 29, BUN 27, creatinine 1.3, glucose 142. ASSESSMENT AND PLAN: This is a 75-year-old white male admitted to the hospital for perforated bowel, status post colectomy. 1. Perforated bowel. General surgery is following. The patient is on ertapenem per Infectious Disease recommendation. She has bowel sounds and bowel movement. We will go up to General Surgery to discontinue his NG tube and start him on a diet. He should tolerate his p.o. without much difficulty at this point. 2. Diabetes type 2. Continue sliding scale insulin. 3. Hypertension. The patient is on hydralazine p.r.n. 4. Benign prostatic hypertrophy. The patient is on Avodart and Flomax. We will restart him on those once he is able to take p.o. 5. Deep vein thrombosis prophylaxis. The patient is on Lovenox. CODE STATUS: The patient is a full code.
[2016-05-31] MEDS ORDERED: D5 1/2 NS + KCL 20 MEQ 1,000 ML IV SCH (14:45)
[2016-05-31] MEDS: D5 1/2 NS 1,000 ML IV SCH (15:33)
--- NOTE | 2016-05-31 17:09 | Diag Imaging Result Document ---
PROCEDURE NAME: ABDOMEN FLAT/UPRIGHT - 05/31/2016 ABDOMEN 2 VIEWS: COMPARISON: CT 05/28/2016. FINDINGS: There are laparotomy skin fer. There is a nasogastric tube with the tip in the stomach. No evidence of bowel obstruction or free air. IMPRESSION: No complication.
[2016-05-31] MEDS: LOVENOX SUBQ SCH (21:14)
[2016-05-31] MEDS: INVANZ 1 GM/NS 50 ML IV SCH (21:15)
[2016-06-01] MEDS: HUMULIN R SUBQ SCH ×5 (00:12→23:21)
[2016-06-01] MEDS: OFIRMEV 1000 MG/ISOTONIC SOLN 100 ML IV SCH ×4 (00:26→23:01)
[2016-06-01] MEDS: DILAUDID IV PRN ×7 (01:42→23:18)
[2016-06-01] MEDS: SODIUM CHLORIDE 0.9% INJ SCH (05:03)
[2016-06-01] MEDS: PROTONIX IV SCH (05:03)
[2016-06-01] MEDS: D5 1/2 NS 1,000 ML IV SCH ×2 (05:10→19:44)
[2016-06-01 06:08] LABS: AGAP 7; BUN 19 mg/dL (8-22); CALCIUM 8.3 mg/dL (8.8-10.2); CHLORIDE 102 mmol/L (98-107); COSMO 280; POTASSIUM 4.6 mmol/L (3.5-5.1); SODIUM 138 mmol/L (136-145); TCO2 29 mmol/L (25-35)
[2016-06-01] MEDS: MINERAL OIL PO SCH ×3 (08:52→23:01)
[2016-06-01] MEDS: AVODART PO SCH (10:32)
[2016-06-01] MEDS: FLOMAX PO SCH (10:33)
[2016-06-01] MEDS: HYDROCHLOROTHIAZIDE PO SCH (10:33)
[2016-06-01] MEDS: ANTIVERT PO SCH ×3 (10:33→23:01)
[2016-06-01] MEDS: COZAAR PO SCH (10:33)
--- NOTE | 2016-06-01 10:41 | PROGRESS NOTE ---
DATE: 06/01/2016 SUBJECTIVE: The patient is feeling better. No significant nausea and vomiting. He is just mainly sore in his abdomen. He has passed some gas. He is tolerating a clear liquid diet so far and he is getting out of bed a little. OBJECTIVE: He is afebrile. Vital signs are stable.General: He is alert oriented x4. No acute distress. CV: Regular rate and rhythm. Respiratory: Bilateral equal breath sounds. GI: Soft, appropriately tender. He does have bowel sounds. His incisional dressing is dry and intact. LABORATORY: Metabolic profile was reviewed and unremarkable. ASSESSMENT/PLAN: A 75-year-old male status post extended right hemicolectomy for gangrenous colon and perforation. He is making progress. I am going to keep him on a clear liquid diet but can advance him over the weekend as tolerated. I have encouraged him to use his incentive spirometer and work with physical therapy to be out of bed and walk each day. We will continue the Invanz for another couple of days for coverage of this contaminated perforated viscus. He needs to continue his Negron catheter today for input and output monitoring and as his mobility improves over the weekend, I plan to remove the catheter. My partners will be covering for me this weekend.
--- NOTE | 2016-06-01 14:03 | PROGRESS NOTE ---
DATE: 06/01/2016 SUBJECTIVE: The patient feeling well. NG tube came out. He is feeling much better. No fever. No chills. No nausea, vomiting, or diarrhea. The patient had a bowel movement last night but none this morning. OBJECTIVE: Vital signs: Blood pressure 142/59, pulse of 67, respiration 18, temperature 98.8 degrees, saturations of 97% on room air. General appearance: Well-developed, well-nourished white male in no acute distress. HEENT: Anicteric. Clear conjunctivae. Neck: Supple. No JVD. No bruit. Cardiovascular: S1, S2. Normal rate and rhythm. No murmur, rubs, or gallops. Pulmonary: Clear to auscultation bilaterally. GI: Soft, nontender, nondistended. Normoactive bowel sounds. Musculoskeletal: No clubbing, cyanosis, or edema. LABORATORY: The patient did and did not have a white count today. Sodium 130, potassium 4.6, chloride 102, bicarb 29, BUN 19, creatinine 1.1. Glucose 137. ASSESSMENT AND PLAN: This is a 75-year-old white male admitted to the hospital for gangrenous bowel status post colectomy. 1. Bowel perforation and gangrene. The patient doing much better. He is still on ertapenem. No fever, no chills. Surgery wants him to be on a clear liquid diet over the weekend and will advanced as tolerated after that. 2. Diabetes. Will continue sliding scale insulin. 3. Hypertension. Continue p.r.n. hydralazine. Will restart him back on his home medication. 4. Benign prostatic hypertrophy. Will continue Avodart and Flomax. 5. Deep vein thrombosis prophylaxis. The patient on Lovenox. CODE STATUS: The patient is a full code.
[2016-06-01] MEDS: INVANZ 1 GM/NS 50 ML IV SCH (23:01)
[2016-06-01] MEDS: LIPITOR PO SCH (23:02)
[2016-06-01] MEDS: NORVASC PO SCH (23:02)
[2016-06-01] MEDS: ASPIRIN EC PO SCH (23:02)
[2016-06-01] MEDS: ZYLOPRIM PO SCH (23:02)
[2016-06-01] MEDS: LOVENOX SUBQ SCH (23:03)
[2016-06-02] MEDS: DILAUDID IV PRN ×5 (04:11→18:05)
[2016-06-02] MEDS: OFIRMEV 1000 MG/ISOTONIC SOLN 100 ML IV SCH ×5 (04:12→23:24)
[2016-06-02 05:47] LABS: MANUAL DIFF NEEDED? NO
[2016-06-02 05:56] LABS: BASO% 0.4 % (0.0-0.8); EOS# 0.21 X1000 (0.0-0.7); EOS% 2.8 % (0.0-10.0); HEMATOCRIT 31.8 % (42.0-52.0); HEMOGLOBIN 10.8 g/dL (14.0-18.0); IMM GRAN# 0.04 X1000 (0.0-0.04); IMM GRAN% 0.5 % (0.0-0.5); LYMPH# 0.99 X1000 (1.2-3.4); LYMPH% 13.2 % (20.5-51.1); MCH 31.2 PG (27-31); MCV 91.9 FL (81-99); MONO# 0.94 X1000 (0.11-0.59); MONO% 12.5 % (1.7-9.3); NEUT% 70.6 % (42.2-75.2); PLT 254 X1000 (130-400); RBC 3.46 XMIL (4.7-6.1)
[2016-06-02 06:15] LABS: AGAP 10; BUN 18 mg/dL (8-22); CALCIUM 7.8 mg/dL (8.8-10.2); CHLORIDE 102 mmol/L (98-107); COSMO 277; POTASSIUM 4.1 mmol/L (3.5-5.1); SODIUM 137 mmol/L (136-145); TCO2 25 mmol/L (25-35)
[2016-06-02] MEDS: SODIUM CHLORIDE 0.9% INJ SCH (07:48)
[2016-06-02] MEDS: D5 1/2 NS 1,000 ML IV SCH ×2 (07:48→18:03)
[2016-06-02] MEDS: HUMULIN R SUBQ SCH ×4 (07:49→21:20)
[2016-06-02] MEDS: PROTONIX IV SCH (07:49)
--- NOTE | 2016-06-02 08:34 | Diag Imaging Result Document ---
PROCEDURE NAME: CHEST-PORTABLE - 06/02/2016 PORTABLE CHEST: COMPARISON: 05/30/2016. FINDINGS: The nasogastric tube has been removed. There has been mild decrease in atelectasis or infiltrate at the left base. The left upper lung and right lung appear clear. There is a possible tiny left pleural effusion. There is no pneumothorax seen. Heart size is stable. IMPRESSION: Mild decrease in atelectasis or infiltrate at the left base.
[2016-06-02] MEDS: AVODART PO SCH (09:45)
[2016-06-02] MEDS: COZAAR PO SCH (09:45)
[2016-06-02] MEDS: ANTIVERT PO SCH ×3 (09:46→18:04)
[2016-06-02] MEDS: FLOMAX PO SCH (09:47)
[2016-06-02] MEDS: HYDROCHLOROTHIAZIDE PO SCH (09:49)
--- NOTE | 2016-06-02 10:17 | PROGRESS NOTE ---
DATE: 06/02/2016 SUBJECTIVE: Mr. Judah Marcum is a 75-year-old white male, who is now postop day 4 after undergoing a right hemicolectomy by Dr. Miky Noguera for gangrenous colon with perforation. He is awake and cooperative this morning. His abdomen remains distended. His heart rate is 72, blood pressure 118/53, O2 saturation 97%. He does have a Negron catheter tube in place. His urine output is good. He is afebrile. His white blood cell count is normal. His hematocrit is 32%. Electrolytes are within normal limits. His BUN and creatinine are 18 and 1.1. His abdomen remains distended. He is trying to take some liquids. He has had little flatus. PLAN: We will continue him on liquids and IV antibiotics, which is Invanz. We will try to remove his Negron tomorrow. He is on Flomax. We need to increase his activity, although he does have problems with dizziness.
[2016-06-02] MEDS: MINERAL OIL PO SCH ×3 (11:03→18:04)
--- NOTE | 2016-06-02 14:47 | PROGRESS NOTE ---
DATE: 06/02/2016 SUBJECTIVE: The patient is feeling much better today. He denies having any fever or chills. Denies having any nausea, vomiting, or diarrhea. Tolerating p.o. so far. OBJECTIVE: Vital signs: Blood pressure 120/48, pulse of 81, respiration 18, temperature 98.0 degrees, saturation 97% on room air. General appearance: Morbidly obese, white male, in no acute distress. HEENT: Anicteric sclerae. Clear conjunctivae. Neck: Supple. No JVD. No bruit. Cardiovascular: S1, S2, normal rate and rhythm. No murmur, rubs, or gallops. Pulmonary: Clear to auscultation bilaterally. GI: Soft, mildly tender to palpation. Normoactive bowel sounds. Musculoskeletal: No clubbing, cyanosis, or edema. LABORATORY: Were reviewed. No abnormal lab. CHEST X-RAY: Mild decrease in atelectasis and/or infiltrate at the left base. ASSESSMENT AND PLAN: This is a 75-year-old admitted to the hospital for bowel perforation status post colectomy. 1. Bowel perforation and status post colectomy. We will continue fluid and antibiotics for now. General Surgery following. No issue. 2. Hypertension. Blood pressure is well controlled. We will continue the current regimen. 3. Diabetes. Continue sliding scale insulin. 4. Benign prostatic hypertrophy. The patient on Avodart and Flomax. Hopefully we can remove his Negron tomorrow. 5. Deep vein thrombosis prophylaxis. The patient is on Lovenox.
[2016-06-02] MEDS: INVANZ 1 GM/NS 50 ML IV SCH (21:20)
[2016-06-02] MEDS: NORVASC PO SCH (21:21)
[2016-06-02] MEDS: ASPIRIN EC PO SCH (21:21)
[2016-06-02] MEDS: LIPITOR PO SCH (21:21)
[2016-06-02] MEDS: ZYLOPRIM PO SCH (21:21)
[2016-06-02] MEDS: LOVENOX SUBQ SCH (21:21)
[2016-06-03] MEDS: DILAUDID IV PRN (02:39)
[2016-06-03] MEDS: D5 1/2 NS 1,000 ML IV SCH (02:39)
[2016-06-03 05:47] LABS: MANUAL DIFF NEEDED? NO
[2016-06-03 05:50] LABS: BASO% 0.5 % (0.0-0.8); EOS# 0.28 X1000 (0.0-0.7); EOS% 3.5 % (0.0-10.0); HEMATOCRIT 31.2 % (42.0-52.0); HEMOGLOBIN 10.4 g/dL (14.0-18.0); IMM GRAN# 0.08 X1000 (0.0-0.04); LYMPH# 1.14 X1000 (1.2-3.4); LYMPH% 14.2 % (20.5-51.1); MCH 30.7 PG (27-31); MCHC 33.3 g/dL (33-37); MONO# 0.97 X1000 (0.11-0.59); MONO% 12.1 % (1.7-9.3); MPV 9.1 FL (7.4-10.4); NEUT% 68.7 % (42.2-75.2); PLT 289 X1000 (130-400); RBC 3.39 XMIL (4.7-6.1)
[2016-06-03] MEDS: PROTONIX IV SCH (06:11)
[2016-06-03] MEDS: OFIRMEV 1000 MG/ISOTONIC SOLN 100 ML IV SCH (06:11)
[2016-06-03] MEDS: HUMULIN R SUBQ SCH ×4 (06:14→21:12)
[2016-06-03 06:19] LABS: CALCIUM 8.1 mg/dL (8.8-10.2); POTASSIUM 3.9 mmol/L (3.5-5.1)
[2016-06-03] MEDS ORDERED: TYLENOL ARTHRITIS PO PRN (10:30)
[2016-06-03] MEDS: COZAAR PO SCH (10:40)
[2016-06-03] MEDS: FLOMAX PO SCH (10:41)
[2016-06-03] MEDS: ANTIVERT PO SCH ×3 (10:41→17:09)
[2016-06-03] MEDS: AVODART PO SCH (10:41)
[2016-06-03] MEDS: HYDROCHLOROTHIAZIDE PO SCH (10:48)
[2016-06-03] MEDS: NORCO-7.5 PO PRN ×3 (10:52→21:10)
--- NOTE | 2016-06-03 11:59 | PROGRESS NOTE ---
DATE: 06/03/2016 SUBJECTIVE: Mr. Judah Marcum is a 75-year-old male who underwent an open right hemicolectomy per Dr. Noguera and continues to improve postoperatively. He seems comfortable this morning. His abdomen is soft. He has had a bowel movement and admits to flatus. His midline incision is dressed. OBJECTIVE: His heart rate is 75, blood pressure 135/60, O2 saturation 98%. His Negron was removed this morning. He has not voided but he has had good urine output. His white blood cell count has been normal. His hematocrit is 31%. He is afebrile. All electrolytes are within normal limits. His BUN is 16, creatinine 1.2. PLAN: We will advance his diet to a regular diet. We will continue to increase his activity. His Negron has been removed and I expect him to be able to void. He is on p.o. Flomax. We have changed IV medications to p.o.
--- NOTE | 2016-06-03 15:57 | PROGRESS NOTE ---
DATE: 06/03/2016 SUBJECTIVE: The patient is feeling well. He complained of having greenish stool. Abdominal pain has significantly improved.Vital signs: Blood pressure 146/55, pulse of 79, respiration 12, temperature of 98.5 degrees. Saturation of 92% on room air. General appearance: Obese white male, in no acute distress. HEENT: Anicteric. Clear conjunctivae. Neck: Supple. No JVD. No bruit. Cardiovascular: S1, S2. Normal rate and rhythm. No murmur, rubs, or gallops. Pulmonary: Clear to auscultation bilaterally. GI: Soft, nontender, nondistended. Normoactive bowel sounds Musculoskeletal: No clubbing, cyanosis, or edema. LABORATORY: White count 8.03, hemoglobin 10.4, hematocrit of 31.2, platelets of 289,000. Chemistry: Sodium 141, potassium 3.9, chloride 104, bicarb 25, BUN 16, creatinine 1.2, glucose 145. ASSESSMENT/PLAN: 1. This is a 75-year-old white male, admitted to the hospital for bowel perforation, status post colectomy with reanastomosis. The patient is doing well. The patient complained of having the stool that was greenish. We sent for a Clostridium difficile. Can possibly stop the antibiotics at that point. 2. Hypertension. Blood pressure well controlled. He is on Cozaar and Norvasc. 3. Benign prostatic hypertrophy. He is on Avodart and Flomax. The Negron was removed. 4. Deep vein thrombosis prophylaxis. The patient is on Lovenox.
[2016-06-03] MEDS: ASPIRIN EC PO SCH (21:11)
[2016-06-03] MEDS: ZYLOPRIM PO SCH (21:11)
[2016-06-03] MEDS: LIPITOR PO SCH (21:11)
[2016-06-03] MEDS: LOVENOX SUBQ SCH (21:11)
[2016-06-03] MEDS: NORVASC PO SCH (21:11)
[2016-06-04] MEDS: NORCO-7.5 PO PRN ×2 (06:23→12:07)
[2016-06-04 06:45] LABS: CALCIUM 8.1 mg/dL (8.8-10.2); POTASSIUM 3.8 mmol/L (3.5-5.1)
[2016-06-04 07:40] VITALS: BP 145/50
[2016-06-04] MEDS: COZAAR PO SCH (09:14)
[2016-06-04] MEDS: FLOMAX PO SCH (09:14)
[2016-06-04] MEDS: ANTIVERT PO SCH ×2 (09:14→12:08)
[2016-06-04] MEDS: HYDROCHLOROTHIAZIDE PO SCH (09:14)
[2016-06-04] MEDS: AVODART PO SCH (09:15)
--- NOTE | 2016-06-04 11:02 | PROGRESS NOTE ---
DATE: 06/04/2016 SUBJECTIVE: The patient is feeling quite well today. He is tolerating a regular diet. He is having bowel movements and flatus. He is not vomiting. He is ambulating and voiding. OBJECTIVE: Vital signs: He is afebrile. Vital signs are stable. General: He is alert and oriented x4. No acute distress. CV: Regular rate and rhythm. Respiratory: Bilateral equal breath sounds. GI: Soft, nontender, nondistended. Good bowel sounds. Incision is clean, dry, and intact. LABORATORY: Pathology report is pending. There are no labs today. ASSESSMENT AND PLAN: A 75-year-old male status post extended right hemicolectomy for colonic ischemia and perforation. The cause is still undetermined at this point. He is well enough for discharge. I have encouraged him to walk daily, to eat a regular diet as tolerated, To avoid heavy lifting. He may shower. He will follow up with me in 1 week. I will also refer him to a learning support assistant for further blood clotting disorder workup given this acute colonic ischemia as well as his strong family history of blood clots. He has requested a hospital bed. I will ask social work to look into this and will order some home physical therapy.
[2016-06-04] MEDS: HUMULIN R SUBQ SCH ×2 (11:30→12:08)
--- NOTE | 2016-06-05 07:42 | DISCHARGE SUMMARY ---
ADMISSION DATE: 05/28/2016 DISCHARGE DATE: 06/04/2016 ADMITTING DIAGNOSIS: Perforated viscus. DISCHARGE DIAGNOSIS: 1. Colonic ischemia with perforation. 2. Constipation. PROCEDURE: Right extended right hemicolectomy. CONSULTATIONS: The hospitalist and the investigation lieutenant. BRIEF HISTORY: A 75-year-old male who was in his usual state of health when he presented with acute onset of abdominal pain, distention, nausea and vomiting and he felt constipated. Workup in the emergency room revealed a severely dilated proximal colon with distal colon having the appearance of stool impaction or constipation. There was evidence of perforation. He was taken urgently to the operating room. HOSPITAL COURSE: He underwent the above procedure. For full details please see the operative report. Postoperatively he had an uneventful convalescence. He was intubated the 1st night and the investigation lieutenant saw him and was able to extubate him after the 1st day. He was transferred to the floor, and shortly thereafter he slowly improved his activity level over the next few days as he began having bowel movements after giving him some gentle laxatives and enemas. He was advanced from a clear liquid to a soft diet and did well with this. His Negron catheter was removed several days after the operation and he was able to void successfully. He did not show any fever, hemodynamic instability or worsening laboratory values. His renal function returned to normal. On the day of discharge, he was feeling quite well. INSTRUCTIONS: No heavy lifting. He may shower. He can eat a regular diet as tolerated. He should follow up with Dr. Noguera in 1 week. We are going to refer him to a casting technician for further blood clotting disorder workup, although it is not clear that he actually had a blood clot. He does have a strong family history of this. DISCHARGE MEDICATIONS: He will continue his home use of: 1. Lipitor. 2. Allopurinol. 3. Norvasc. 4. Aspirin. 5. Avodart. 6. Hydrochlorothiazide. 7. Cozaar. 8. Antivert. 9. Flomax. 10. Amaryl. He has a new prescription for Choudrant 7.5 mg 1 p.o. q.4 hours as needed for pain.
== END 2016-06-04 13:35 | disposition home health service (06) | DRG 329 ==
LOC: P.ED 19:27 → ICU 22:32 → UNDOADMIN 05-29 03:27 → 4N 05-30 21:58
PROVIDERS: ADMIT Surgery; ATTEND Surgery
PROC: 0DTL0ZZ Resection of Transverse Colon, Open Approach (ICD-10-PCS; principal; 2016-05-29)
PROC: 0DTK0ZZ Resection of Ascending Colon, Open Approach (ICD-10-PCS; 2016-05-29)
DX: K55.041 Focal (segmental) acute infarction of large intestine (principal); K63.1 Perforation of intestine (nontraumatic); J96.00 Acute respiratory failure, unspecified whether with hypoxia or hypercapnia; N17.9 Acute kidney failure, unspecified; E11.9 Type 2 diabetes mellitus without complications; I35.2 Nonrheumatic aortic (valve) stenosis with insufficiency; I10 Essential (primary) hypertension; M10.9 Gout, unspecified; N40.0 Benign prostatic hyperplasia without lower urinary tract symptoms; E78.5 Hyperlipidemia, unspecified; Z85.820 Personal history of malignant melanoma of skin; Z87.891 Personal history of nicotine dependence; Z82.49 Family history of ischemic heart disease and other diseases of the circulatory system; Z80.41 Family history of malignant neoplasm of ovary; Z80.8 Family history of malignant neoplasm of other organs or systems; R42 Dizziness and giddiness; Z68.26 Body mass index [BMI] 26.0-26.9, adult; E66.9 Obesity, unspecified; K59.00 Constipation, unspecified; Z79.899 Other long term (current) drug therapy; Z79.82 Long term (current) use of aspirin
CPT/HCPCS: 71010; 71250; 74020; 74176; 80048; 80053; 81001; 82805; 82948; 83036; 83605; 85025; 85610; 85730; 86850; 86900; 86901; 87040; 88307; 93005; 93010; 94002; 94003; 94761; 96361; 96374; 96375; 96376; C9113; J0131; J0330; J1170; J1335; J1650; J2270; J2405; J3010; J7030; J7120; J7121; 97116-GP; 97530-GP; J2710; S0164